=== PATIENT | female | born 1930 | race Caucasian/White ===

== ENCOUNTER 2018-10-15 15:30 | Inpatient (IN) ==
[2018-10-15] MEDS ORDERED: FUROSEMIDE 100 MG/10 ML VIAL IV STA (15:44)
[2018-10-15] MEDS ORDERED: ALBUTEROL 2.5 MG/3 ML NEB RESP TX STA (15:46)
[2018-10-15] MEDS ORDERED: cefTRIAXone 1,000 MG in SODIUM CHLORIDE 0.9% 100 ML IV STA (16:23)
[2018-10-15 17:24] LABS: Apearance,Urine CLEAR (Clear); Bacteria,Urine Occasional /HPF (Few); Bilirubin,Urine Negative (Negative); Blood, Urine Small mg/dL (Negative); Glucose,Urine (UA) Negative (Negative); Hyaline Casts,Urine 16 /LPF (0-3); Ketones,Urine Negative (Negative); Mucus,Urine Occasional /LPF (Occasional); Nitrite,Urine Negative (Negative); Protein,Urine Negative; RBC,Urine 9 /HPF (0-4); Squamous Epithelial Cell,Urine Occasional /HPF (0-10); Urine Color Straw (Yellow); Urine Specific Gravity 1.006 (1.001-1.035); Urine Urobilinogen < 2.0 EU/DL (0.2-1.0); WBC,Urine 2 /HPF (0-6)
[2018-10-15 17:37] LABS: Basophils # 0.1 10*3/uL (0.0-0.2); Basophils % 0.5 % (0.0-0.8); Eosinophils # 0.1 10*3/uL (0.0-0.87); Eosinophils % 0.4 % (0.00-10.9); Hematocrit 46.9 VOL% (35.7-47.0); Hemoglobin 14.7 GM/DL (12.0-16.0); Immature Granulocytes % 0.7 %; Immature Granulocytes Absolute 0.13 #; Lymphocytes # 2.2 10*3/uL (1.4-4.0); Lymphocytes % 11.9 % (21.3-54.2); Mean Corpuscular HGB Conc 31.3 GM/DL (32-36); Mean Corpuscular Hemoglobin 31 PG (27-34); Mean Corpuscular Volume 99.4 FL (87-102); Mean Platelet Volume 11.1 FL (9.6-12.0); Monocytes % 5.4 % (1.7-12.7); Neutrophils # 15.3 10*3/uL (1.4-7.4); Neutrophils % 81.1 % (38.7-73.9); Platelet Count 251 T/CUMM (130-400); Red Blood Count 4.72 MC/CUMM (3.8-5.5); Red Cell Distribution Width 13.3 % (9.3-17.3); White Blood Count 18.8 T/CUMM (4-12)
[2018-10-15 17:43] LABS: ABG Base Excess -0.2 MMOL/L (-2.5-2.5); ABG HCO3 24.2 MMOL/L (20-26); ABG Oxygen Saturation 94.9 % (95-100); ABG PCO2 68.1 MM HG (35-48); ABG PH 7.249 (7.35-7.45); ABG PO2 84.8 MM HG (80-95); Allen Test Positive; Pt O2 Delivery Device BIPAP
[2018-10-15] MEDS ORDERED: ONDANSETRON 4 MG/2 ML VIAL IV PRN (18:01)
[2018-10-15 18:05] LABS: Alanine Aminotransferase 32 U/L (13-56); Albumin 3.3 G/DL (3.4-5.0); Alkaline Phosphatase 75 U/L (45-117); Aspartate Amino Transferase 32 U/L (0-37); Bilirubin,Total < 0.39 MG/DL (0.2-1.0); Blood Urea Nitrogen 36 MG/DL (7-18); Calcium 8.7 MG/DL (8.5-10.1); Glucose 225 MG/DL (74-106); Osmolality,Calculated 293.4 MOS/KG (273-304); Potassium 4.8 MMOL/L (3.5-5.1); Sodium 140 MMOL/L (136-145); Total Protein 7.7 G/DL (6.4-8.3)
[2018-10-15] MEDS ORDERED: LEVOFLOXACIN INJ 500 MG in PREMIX 1 EACH IV ONE (19:30)
[2018-10-15] MEDS: CLINDAMYCIN INJ 600 MG in PREMIX 1 EACH IV SCH (20:35)
[2018-10-15] MEDS: MEROPENEM 1,000 MG in SODIUM CHLORIDE 0.9% 100 ML IV SCH (21:28)
[2018-10-15] MEDS: ALBUTEROL/IPRATROPIUM 3 ML NEB RESP TX SCH (21:30)
[2018-10-15] MEDS: HEPARIN 5,000 UNIT/1 ML VIAL SUBCUT SCH (21:32)
[2018-10-15] MEDS: cloNIDine 0.2 MG/24 HR PATCH TRANSDERM SCH (23:22)
[2018-10-16] MEDS: INSULIN REGULAR 100 UNIT/ML SUBCUT SCH ×5 (00:09→23:44)
[2018-10-16] MEDS: ALBUTEROL/IPRATROPIUM 3 ML NEB RESP TX SCH ×6 (01:58→19:26)
[2018-10-16 02:16] LABS: Basophils % 0.4 % (0.0-0.8); Hematocrit 38.2 VOL% (35.7-47.0); Hemoglobin 12.3 GM/DL (12.0-16.0); Immature Granulocytes % 0.4 %; Immature Granulocytes Absolute 0.05 #; Lymphocytes # 1.5 10*3/uL (1.4-4.0); Mean Corpuscular HGB Conc 32.2 GM/DL (32-36); Mean Corpuscular Hemoglobin 32 PG (27-34); Mean Corpuscular Volume 97.7 FL (87-102); Mean Platelet Volume 10.9 FL (9.6-12.0); Monocytes # 0.7 10*3/uL (0.11-0.8); Monocytes % 6.2 % (1.7-12.7); Platelet Count 193 T/CUMM (130-400); Red Blood Count 3.91 MC/CUMM (3.8-5.5); Red Cell Distribution Width 13.2 % (9.3-17.3); White Blood Count 11.3 T/CUMM (4-12)
[2018-10-16 02:28] LABS: Calcium 8.2 MG/DL (8.5-10.1); Osmolality,Calculated 293.3 MOS/KG (273-304); Potassium 3.9 MMOL/L (3.5-5.1)
[2018-10-16 02:36] LABS: Troponin I 0.057 NG/ML (0.00-0.045)
[2018-10-16 05:27] LABS: ABG HCO3 28.9 MMOL/L (20-26); ABG Oxygen Saturation 99.7 % (95-100); ABG PCO2 49.5 MM HG (35-48); ABG PH 7.403 (7.35-7.45); ABG TCO2 27.2 MMOL/L (23-27); Allen Test Positive; Pt O2 Delivery Device BIPAP
[2018-10-16] MEDS: CLINDAMYCIN INJ 600 MG in PREMIX 1 EACH IV SCH (05:37)
[2018-10-16] MEDS: HEPARIN 5,000 UNIT/1 ML VIAL SUBCUT SCH ×3 (05:37→20:44)
[2018-10-16] MEDS: MEROPENEM 1,000 MG in SODIUM CHLORIDE 0.9% 100 ML IV SCH ×2 (09:27→20:45)
[2018-10-16] MEDS: FUROSEMIDE 40 MG/4 ML VIAL IV SCH (09:28)
[2018-10-16] MEDS ORDERED: NITROGLYCERIN SL 0.4 MG TABLET SL PRN (13:21)
[2018-10-16] MEDS: ALLOPURINOL 100 MG TABLET PO SCH (14:13)
[2018-10-16] MEDS: cloNIDine 0.2 MG/24 HR PATCH TRANSDERM SCH (14:39)
[2018-10-16] MEDS: INSULIN NPH/REGULAR 70/30 100 UNIT/ML SUBCUT SCH ×2 (16:36→17:01)
[2018-10-16] MEDS: POTASSIUM CHLORIDE 10 MEQ TABLET PO SCH (18:48)
[2018-10-16] MEDS ORDERED: LEVOFLOXACIN INJ 250 MG in PREMIX 1 EACH IV SCH (20:00)
[2018-10-16] MEDS: GABAPENTIN 600 MG TABLET PO SCH (20:43)
[2018-10-16] MEDS: SIMVASTATIN 20 MG TABLET PO SCH (20:43)
[2018-10-16] MEDS: MAGNESIUM CHLORIDE 64 MG TABLET PO SCH (20:43)
[2018-10-16] MEDS ORDERED: CARVEDILOL 6.25 MG TABLET PO SCH (21:00)
[2018-10-16] MEDS: MORPHINE 4 MG/1 ML VIAL IV PRN (23:58)
[2018-10-17] MEDS: ALBUTEROL/IPRATROPIUM 3 ML NEB RESP TX SCH ×7 (00:19→23:00)
[2018-10-17 04:10] LABS: ABG Base Excess 8.4 MMOL/L (-2.5-2.5); ABG HCO3 32.9 MMOL/L (20-26); ABG Oxygen Saturation 98.6 % (95-100); ABG PCO2 44.9 MM HG (35-48); ABG PH 7.483 (7.35-7.45); ABG PO2 138.8 MM HG (80-95); ABG TCO2 34.3 MMOL/L (23-27); Allen Test Positive
[2018-10-17 04:36] LABS: Basophils % 0.5 % (0.0-0.8); Eosinophils # 0.1 10*3/uL (0.0-0.87); Eosinophils % 1.5 % (0.00-10.9); Hematocrit 38.4 VOL% (35.7-47.0); Hemoglobin 12.2 GM/DL (12.0-16.0); Immature Granulocytes % 0.4 %; Immature Granulocytes Absolute 0.03 #; Lymphocytes % 24.3 % (21.3-54.2); Mean Corpuscular HGB Conc 31.8 GM/DL (32-36); Mean Corpuscular Hemoglobin 31 PG (27-34); Mean Corpuscular Volume 98.2 FL (87-102); Mean Platelet Volume 11.5 FL (9.6-12.0); Monocytes # 0.8 10*3/uL (0.11-0.8); Monocytes % 9.4 % (1.7-12.7); Neutrophils # 5.3 10*3/uL (1.4-7.4); Neutrophils % 63.9 % (38.7-73.9); Platelet Count 177 T/CUMM (130-400); Red Blood Count 3.91 MC/CUMM (3.8-5.5); Red Cell Distribution Width 13.2 % (9.3-17.3); White Blood Count 8.3 T/CUMM (4-12)
[2018-10-17] MEDS: HEPARIN 5,000 UNIT/1 ML VIAL SUBCUT SCH ×3 (04:46→20:29)
[2018-10-17 05:17] LABS: Calcium 8.3 MG/DL (8.5-10.1); Osmolality,Calculated 291.1 MOS/KG (273-304); Potassium 3.7 MMOL/L (3.5-5.1)
[2018-10-17] MEDS: INSULIN REGULAR 100 UNIT/ML SUBCUT SCH (05:23)
[2018-10-17] MEDS: INSULIN NPH/REGULAR 70/30 100 UNIT/ML SUBCUT SCH ×2 (07:51→18:18)
[2018-10-17] MEDS: DILTIAZEM CD 180 MG CAPSULE PO SCH (08:53)
[2018-10-17] MEDS: POTASSIUM CHLORIDE 10 MEQ TABLET PO SCH ×2 (08:53→17:02)
[2018-10-17] MEDS: ALLOPURINOL 100 MG TABLET PO SCH (08:53)
[2018-10-17] MEDS: CARVEDILOL 12.5 MG TABLET PO SCH ×2 (08:54→20:30)
[2018-10-17] MEDS: CLOPIDOGREL 75 MG TABLET PO SCH (08:54)
[2018-10-17] MEDS: IRON (CARBONYL)/VIT C/B12/FA TABLET PO SCH (08:54)
[2018-10-17] MEDS: MAGNESIUM CHLORIDE 64 MG TABLET PO SCH ×2 (08:54→20:30)
[2018-10-17] MEDS: FUROSEMIDE 40 MG/4 ML VIAL IV SCH (08:54)
[2018-10-17] MEDS: ASPIRIN EC 81 MG TABLET PO SCH (08:54)
[2018-10-17] MEDS: MEROPENEM 1,000 MG in SODIUM CHLORIDE 0.9% 100 ML IV SCH ×2 (08:55→20:30)
[2018-10-17] MEDS: LISINOPRIL 5 MG TABLET PO SCH (18:55)
[2018-10-17] MEDS: ISOSORBIDE MONONITRATE 20 MG TABLET PO SCH (19:02)
[2018-10-17] MEDS: SIMVASTATIN 20 MG TABLET PO SCH (20:30)
[2018-10-17] MEDS: GABAPENTIN 600 MG TABLET PO SCH (20:30)
[2018-10-18] MEDS: ALBUTEROL/IPRATROPIUM 3 ML NEB RESP TX SCH ×6 (03:00→23:45)
[2018-10-18] MEDS: MORPHINE 4 MG/1 ML VIAL IV PRN (04:35)
[2018-10-18] MEDS: HEPARIN 5,000 UNIT/1 ML VIAL SUBCUT SCH ×3 (04:46→21:58)
[2018-10-18] MEDS: INSULIN NPH/REGULAR 70/30 100 UNIT/ML SUBCUT SCH ×2 (10:15→16:52)
[2018-10-18] MEDS: ASPIRIN EC 81 MG TABLET PO SCH (10:22)
[2018-10-18] MEDS: IRON (CARBONYL)/VIT C/B12/FA TABLET PO SCH (10:22)
[2018-10-18] MEDS: DILTIAZEM CD 180 MG CAPSULE PO SCH (10:22)
[2018-10-18] MEDS: CLOPIDOGREL 75 MG TABLET PO SCH (10:23)
[2018-10-18] MEDS: ISOSORBIDE MONONITRATE 20 MG TABLET PO SCH ×2 (10:23→21:52)
[2018-10-18] MEDS: ALLOPURINOL 100 MG TABLET PO SCH (10:24)
[2018-10-18] MEDS: MAGNESIUM CHLORIDE 64 MG TABLET PO SCH ×2 (10:24→21:53)
[2018-10-18] MEDS: CARVEDILOL 6.25 MG TABLET PO SCH ×2 (10:25→21:52)
[2018-10-18] MEDS: POTASSIUM CHLORIDE 10 MEQ TABLET PO SCH ×2 (10:25→16:52)
[2018-10-18] MEDS: LEVOFLOXACIN 250 MG TABLET PO SCH (10:25)
[2018-10-18] MEDS: LISINOPRIL 5 MG TABLET PO SCH (10:25)
[2018-10-18] MEDS: MEROPENEM 1,000 MG in SODIUM CHLORIDE 0.9% 100 ML IV SCH ×2 (10:25→21:49)
[2018-10-18] MEDS: FUROSEMIDE 40 MG/4 ML VIAL IV SCH (10:26)
[2018-10-18] MEDS ORDERED: MORPHINE 4 MG/1 ML VIAL IV PRN (13:15)
[2018-10-18] MEDS: GABAPENTIN 600 MG TABLET PO SCH (21:52)
[2018-10-18] MEDS: SIMVASTATIN 20 MG TABLET PO SCH (21:52)
[2018-10-19] MEDS: ALBUTEROL/IPRATROPIUM 3 ML NEB RESP TX SCH ×6 (04:36→23:36)
[2018-10-19 05:18] LABS: Basophils % 0.6 % (0.0-0.8); Eosinophils # 0.2 10*3/uL (0.0-0.87); Eosinophils % 2.7 % (0.00-10.9); Hematocrit 36.3 VOL% (35.7-47.0); Hemoglobin 11.7 GM/DL (12.0-16.0); Immature Granulocytes % 0.5 %; Immature Granulocytes Absolute 0.03 #; Lymphocytes # 2.1 10*3/uL (1.4-4.0); Lymphocytes % 31.4 % (21.3-54.2); Mean Corpuscular HGB Conc 32.2 GM/DL (32-36); Mean Corpuscular Hemoglobin 31 PG (27-34); Mean Corpuscular Volume 96.8 FL (87-102); Mean Platelet Volume 11.7 FL (9.6-12.0); Monocytes # 0.7 10*3/uL (0.11-0.8); Monocytes % 11.3 % (1.7-12.7); Neutrophils # 3.5 10*3/uL (1.4-7.4); Neutrophils % 53.5 % (38.7-73.9); Platelet Count 185 T/CUMM (130-400); Red Blood Count 3.75 MC/CUMM (3.8-5.5); Red Cell Distribution Width 13.1 % (9.3-17.3); White Blood Count 6.6 T/CUMM (4-12)
[2018-10-19] MEDS: HEPARIN 5,000 UNIT/1 ML VIAL SUBCUT SCH ×3 (05:35→20:40)
[2018-10-19 05:38] LABS: Calcium 8.8 MG/DL (8.5-10.1); Osmolality,Calculated 290.4 MOS/KG (273-304); Potassium 3.7 MMOL/L (3.5-5.1)
[2018-10-19] MEDS: IRON (CARBONYL)/VIT C/B12/FA TABLET PO SCH (10:48)
[2018-10-19] MEDS: LISINOPRIL 5 MG TABLET PO SCH (10:48)
[2018-10-19] MEDS: MAGNESIUM CHLORIDE 64 MG TABLET PO SCH ×2 (10:48→20:41)
[2018-10-19] MEDS: ASPIRIN EC 81 MG TABLET PO SCH (10:49)
[2018-10-19] MEDS: ALLOPURINOL 100 MG TABLET PO SCH (10:49)
[2018-10-19] MEDS: LEVOFLOXACIN 250 MG TABLET PO SCH (10:49)
[2018-10-19] MEDS: POTASSIUM CHLORIDE 10 MEQ TABLET PO SCH ×2 (10:49→18:07)
[2018-10-19] MEDS: FUROSEMIDE 40 MG TABLET PO SCH (10:49)
[2018-10-19] MEDS: DILTIAZEM CD 180 MG CAPSULE PO SCH (10:49)
[2018-10-19] MEDS: CLOPIDOGREL 75 MG TABLET PO SCH (10:49)
[2018-10-19] MEDS: CARVEDILOL 6.25 MG TABLET PO SCH ×2 (10:50→21:05)
[2018-10-19] MEDS: INSULIN NPH/REGULAR 70/30 100 UNIT/ML SUBCUT SCH ×2 (10:50→18:07)
[2018-10-19] MEDS: ISOSORBIDE MONONITRATE 20 MG TABLET PO SCH ×2 (10:52→20:38)
[2018-10-19] MEDS: MEROPENEM 1,000 MG in SODIUM CHLORIDE 0.9% 100 ML IV SCH ×2 (10:52→20:37)
[2018-10-19] MEDS: GABAPENTIN 600 MG TABLET PO SCH (20:40)
[2018-10-19] MEDS: SIMVASTATIN 20 MG TABLET PO SCH (21:05)
[2018-10-20] MEDS: ALBUTEROL/IPRATROPIUM 3 ML NEB RESP TX SCH ×3 (03:44→11:28)
[2018-10-20 04:55] LABS: Basophils # 0.1 10*3/uL (0.0-0.2); Basophils % 0.9 % (0.0-0.8); Eosinophils # 0.2 10*3/uL (0.0-0.87); Eosinophils % 2.9 % (0.00-10.9); Hematocrit 36.9 VOL% (35.7-47.0); Immature Granulocytes % 0.5 %; Immature Granulocytes Absolute 0.03 #; Lymphocytes % 31.5 % (21.3-54.2); Mean Corpuscular HGB Conc 32.5 GM/DL (32-36); Mean Corpuscular Hemoglobin 31 PG (27-34); Mean Corpuscular Volume 96.3 FL (87-102); Mean Platelet Volume 11.9 FL (9.6-12.0); Monocytes # 0.7 10*3/uL (0.11-0.8); Neutrophils # 3.4 10*3/uL (1.4-7.4); Neutrophils % 53.2 % (38.7-73.9); Platelet Count 180 T/CUMM (130-400); Red Blood Count 3.83 MC/CUMM (3.8-5.5); White Blood Count 6.5 T/CUMM (4-12)
[2018-10-20 05:15] LABS: Calcium 8.7 MG/DL (8.5-10.1); Osmolality,Calculated 291.5 MOS/KG (273-304); Potassium 3.8 MMOL/L (3.5-5.1)
[2018-10-20] MEDS: HEPARIN 5,000 UNIT/1 ML VIAL SUBCUT SCH ×2 (05:15→12:43)
[2018-10-20] MEDS: INSULIN NPH/REGULAR 70/30 100 UNIT/ML SUBCUT SCH (08:43)
[2018-10-20] MEDS: IRON (CARBONYL)/VIT C/B12/FA TABLET PO SCH (08:44)
[2018-10-20] MEDS: DILTIAZEM CD 180 MG CAPSULE PO SCH (08:44)
[2018-10-20] MEDS: LISINOPRIL 5 MG TABLET PO SCH (08:44)
[2018-10-20] MEDS: CLOPIDOGREL 75 MG TABLET PO SCH (08:44)
[2018-10-20] MEDS: ALLOPURINOL 100 MG TABLET PO SCH (08:45)
[2018-10-20] MEDS: MAGNESIUM CHLORIDE 64 MG TABLET PO SCH (08:45)
[2018-10-20] MEDS: ISOSORBIDE MONONITRATE 20 MG TABLET PO SCH (08:45)
[2018-10-20] MEDS: FUROSEMIDE 40 MG TABLET PO SCH (08:45)
[2018-10-20] MEDS: CARVEDILOL 6.25 MG TABLET PO SCH (08:45)
[2018-10-20] MEDS: ASPIRIN EC 81 MG TABLET PO SCH (08:45)
[2018-10-20] MEDS: POTASSIUM CHLORIDE 10 MEQ TABLET PO SCH (08:45)
[2018-10-20] MEDS: MEROPENEM 1,000 MG in SODIUM CHLORIDE 0.9% 100 ML IV SCH (08:46)
[2018-10-20] MEDS: LEVOFLOXACIN 250 MG TABLET PO SCH (12:43)
[2018-10-20 13:06] VITALS: BP 107/53
== END 2018-10-20 14:22 | disposition home health service (06) | DRG 291 ==
LOC: EDUNIT# → N.ED 15:30 → N.EDINP 18:01 → SUATTDRO 18:01 → N.CC 19:22 → N.4E 10-17 22:50
PROVIDERS: ADMIT Internal Medicine; ATTEND Hospitalist

== ENCOUNTER 2018-12-19 21:40 | Observation (INO) ==
[2018-12-19] MEDS ORDERED: ASPIRIN 325 MG TABLET PO STA (22:26)
[2018-12-19] MEDS ORDERED: ONDANSETRON 4 MG/2 ML VIAL IV STA (22:26)
[2018-12-19] MEDS ORDERED: NITROGLYCERIN 2% OINT 1 INCH/GM PACK TOP STA (22:26)
[2018-12-19] MEDS ORDERED: MORPHINE 4 MG/1 ML VIAL IV STA (22:26)
[2018-12-19 22:33] LABS: Basophils # 0.1 10*3/uL (0.0-0.2); Basophils % 0.7 % (0.0-0.8); Eosinophils # 0.1 10*3/uL (0.0-0.87); Eosinophils % 1.5 % (0.00-10.9); Hematocrit 39.5 VOL% (35.7-47.0); Hemoglobin 12.3 GM/DL (12.0-16.0); Immature Granulocytes % 0.4 %; Immature Granulocytes Absolute 0.04 #; Lymphocytes # 2.2 10*3/uL (1.4-4.0); Lymphocytes % 24.4 % (21.3-54.2); Mean Corpuscular HGB Conc 31.1 GM/DL (32-36); Mean Corpuscular Hemoglobin 30 PG (27-34); Mean Corpuscular Volume 96.8 FL (87-102); Mean Platelet Volume 11.2 FL (9.6-12.0); Monocytes # 0.7 10*3/uL (0.11-0.8); Monocytes % 7.8 % (1.7-12.7); Neutrophils # 5.9 10*3/uL (1.4-7.4); Neutrophils % 65.2 % (38.7-73.9); Platelet Count 200 T/CUMM (130-400); Red Blood Count 4.08 MC/CUMM (3.8-5.5); Red Cell Distribution Width 14.4 % (9.3-17.3); White Blood Count 9.1 T/CUMM (4-12)
[2018-12-19 22:37] LABS: INR 0.9; PT Patient Result 10.3 SECS
[2018-12-19 22:46] LABS: Alanine Aminotransferase 19 U/L (13-56); Albumin 3.2 G/DL (3.4-5.0); Alkaline Phosphatase 64 U/L (45-117); Aspartate Amino Transferase 13 U/L (0-37); Bilirubin,Total < 0.39 MG/DL (0.2-1.0); Blood Urea Nitrogen 40 MG/DL (7-18); Calcium 8.2 MG/DL (8.5-10.1); Glucose 192 MG/DL (74-106); Osmolality,Calculated 300.8 MOS/KG (273-304); Potassium 3.7 MMOL/L (3.5-5.1); Sodium 144 MMOL/L (136-145); Total Protein 7.1 G/DL (6.4-8.3)
[2018-12-20] MEDS ORDERED: DOCUSATE SODIUM 100 MG CAPSULE PO PRN (01:49)
[2018-12-20] MEDS ORDERED: NITROGLYCERIN SL 0.4 MG TABLET SL PRN (01:49)
[2018-12-20] MEDS ORDERED: MORPHINE 4 MG/1 ML VIAL IV PRN (01:55)
[2018-12-20] MEDS ORDERED: ONDANSETRON 4 MG/2 ML VIAL IV PRN (01:55)
[2018-12-20 05:06] LABS: Basophils # 0.1 10*3/uL (0.0-0.2); Basophils % 0.9 % (0.0-0.8); Eosinophils # 0.1 10*3/uL (0.0-0.87); Eosinophils % 1.6 % (0.00-10.9); Hematocrit 36.7 VOL% (35.7-47.0); Hemoglobin 11.7 GM/DL (12.0-16.0); Immature Granulocytes % 0.3 %; Immature Granulocytes Absolute 0.02 #; Lymphocytes # 2.6 10*3/uL (1.4-4.0); Lymphocytes % 33.5 % (21.3-54.2); Mean Corpuscular HGB Conc 31.9 GM/DL (32-36); Mean Corpuscular Hemoglobin 31 PG (27-34); Mean Corpuscular Volume 96.3 FL (87-102); Mean Platelet Volume 11.5 FL (9.6-12.0); Monocytes # 0.7 10*3/uL (0.11-0.8); Monocytes % 9.7 % (1.7-12.7); Neutrophils # 4.1 10*3/uL (1.4-7.4); Platelet Count 182 T/CUMM (130-400); Red Blood Count 3.81 MC/CUMM (3.8-5.5); Red Cell Distribution Width 14.5 % (9.3-17.3); White Blood Count 7.6 T/CUMM (4-12)
[2018-12-20 05:26] LABS: Calcium 8.3 MG/DL (8.5-10.1); Osmolality,Calculated 294.7 MOS/KG (273-304); Potassium 3.8 MMOL/L (3.5-5.1)
[2018-12-20] MEDS ORDERED: ISOSORBIDE MONONITRATE 20 MG TABLET PO SCH (09:00)
[2018-12-20] MEDS: INSULIN NPH/REGULAR 70/30 100 UNIT/ML SUBCUT SCH ×2 (09:03→16:51)
[2018-12-20] MEDS: ALLOPURINOL 100 MG TABLET PO SCH (10:51)
[2018-12-20] MEDS: MAGNESIUM CHLORIDE 64 MG TABLET PO SCH ×2 (10:51→21:26)
[2018-12-20] MEDS: LISINOPRIL 5 MG TABLET PO SCH (10:51)
[2018-12-20] MEDS: MULTIVITAMIN (BEROCCA) TABLET PO SCH (10:51)
[2018-12-20] MEDS: FUROSEMIDE 20 MG TABLET PO SCH (10:52)
[2018-12-20] MEDS: ASPIRIN EC 81 MG TABLET PO SCH (10:53)
[2018-12-20] MEDS: POTASSIUM CHLORIDE 10 MEQ TABLET PO SCH ×2 (10:53→16:50)
[2018-12-20] MEDS: CLOPIDOGREL 75 MG TABLET PO SCH (10:53)
[2018-12-20] MEDS: CARVEDILOL 12.5 MG TABLET PO SCH ×2 (10:53→16:50)
[2018-12-20] MEDS: ISOSORBIDE MONONITRATE 20 MG TABLET PO SCH ×2 (10:55→21:26)
[2018-12-20] MEDS: DILTIAZEM CD 180 MG CAPSULE PO SCH (10:55)
[2018-12-20] MEDS ORDERED: MAGNESIUM SULF RIDER 2 GM in PREMIX 1 EACH IV PRN (14:05)
[2018-12-20] MEDS ORDERED: POTASSIUM CHLORIDE RIDER 10 MEQ in PREMIX 1 EACH IV PRN (14:05)
[2018-12-20] MEDS: SODIUM CHLORIDE 0.9% 1,000 ML IV SCH (14:38)
[2018-12-20] MEDS: SIMVASTATIN 20 MG TABLET PO SCH (21:26)
[2018-12-20] MEDS: GABAPENTIN 600 MG TABLET PO SCH (21:26)
[2018-12-21] MEDS: SODIUM CHLORIDE 0.9% 1,000 ML IV SCH ×3 (03:32→16:12)
[2018-12-21 05:02] LABS: Basophils # 0.1 10*3/uL (0.0-0.2); Basophils % 0.9 % (0.0-0.8); Eosinophils # 0.2 10*3/uL (0.0-0.87); Eosinophils % 2.6 % (0.00-10.9); Hematocrit 35.4 VOL% (35.7-47.0); Hemoglobin 11.1 GM/DL (12.0-16.0); Immature Granulocytes % 0.3 %; Immature Granulocytes Absolute 0.02 #; Lymphocytes # 2.7 10*3/uL (1.4-4.0); Lymphocytes % 38.6 % (21.3-54.2); Mean Corpuscular HGB Conc 31.4 GM/DL (32-36); Mean Corpuscular Hemoglobin 30 PG (27-34); Mean Platelet Volume 11.5 FL (9.6-12.0); Monocytes # 0.6 10*3/uL (0.11-0.8); Monocytes % 8.3 % (1.7-12.7); Neutrophils # 3.4 10*3/uL (1.4-7.4); Neutrophils % 49.3 % (38.7-73.9); Platelet Count 171 T/CUMM (130-400); Red Blood Count 3.65 MC/CUMM (3.8-5.5); Red Cell Distribution Width 14.6 % (9.3-17.3); White Blood Count 6.9 T/CUMM (4-12)
[2018-12-21 05:19] LABS: Calcium 7.9 MG/DL (8.5-10.1); Osmolality,Calculated 295.7 MOS/KG (273-304); Potassium 3.8 MMOL/L (3.5-5.1)
[2018-12-21] MEDS ORDERED: DIAZEPAM 5 MG TABLET PO ONE (06:00)
[2018-12-21] MEDS ORDERED: diphenhydrAMINE CAP 25 MG CAPSULE PO ONE (06:00)
[2018-12-21] MEDS: INSULIN NPH/REGULAR 70/30 100 UNIT/ML SUBCUT SCH ×2 (07:18→18:28)
[2018-12-21] MEDS: LISINOPRIL 5 MG TABLET PO SCH (09:20)
[2018-12-21] MEDS: ASPIRIN EC 81 MG TABLET PO SCH (09:21)
[2018-12-21] MEDS: DILTIAZEM CD 180 MG CAPSULE PO SCH (09:21)
[2018-12-21] MEDS: ISOSORBIDE MONONITRATE 20 MG TABLET PO SCH ×2 (09:21→21:34)
[2018-12-21] MEDS: CLOPIDOGREL 75 MG TABLET PO SCH (09:24)
[2018-12-21] MEDS: CARVEDILOL 12.5 MG TABLET PO SCH ×2 (09:24→18:28)
[2018-12-21] MEDS: POTASSIUM CHLORIDE 10 MEQ TABLET PO SCH ×2 (09:29→18:28)
[2018-12-21] MEDS ORDERED: LIDOCAINE 1% 20 ML VIAL ONE (09:56)
[2018-12-21] MEDS ORDERED: HEPARIN/NACL 0.9% 2 UNITS/ML 1,000 ML IV ONE (09:56)
[2018-12-21] MEDS ORDERED: MIDAZOLAM 2 MG/2 ML VIAL ONE (10:54)
[2018-12-21] MEDS ORDERED: HYDROmorphone 2 MG/1 ML VIAL ONE (10:54)
[2018-12-21] MEDS: FUROSEMIDE 20 MG TABLET PO SCH (15:34)
[2018-12-21] MEDS: ALLOPURINOL 100 MG TABLET PO SCH (15:34)
[2018-12-21] MEDS: MAGNESIUM CHLORIDE 64 MG TABLET PO SCH ×2 (15:34→21:34)
[2018-12-21] MEDS: MULTIVITAMIN (BEROCCA) TABLET PO SCH (15:34)
[2018-12-21] MEDS: ACETAMINOPHEN 325 MG TABLET PO PRN ×2 (18:46→23:23)
[2018-12-21] MEDS: GABAPENTIN 600 MG TABLET PO SCH (21:34)
[2018-12-21] MEDS: SIMVASTATIN 20 MG TABLET PO SCH (21:34)
[2018-12-22 04:55] LABS: Calcium 8.3 MG/DL (8.5-10.1); Potassium 3.7 MMOL/L (3.5-5.1)
[2018-12-22] MEDS: SODIUM CHLORIDE 0.9% 1,000 ML IV SCH ×2 (06:12→07:37)
[2018-12-22] MEDS ORDERED: FUROSEMIDE 40 MG/4 ML VIAL IV ONE (07:40)
[2018-12-22] MEDS: ISOSORBIDE MONONITRATE 20 MG TABLET PO SCH (09:31)
[2018-12-22] MEDS: MULTIVITAMIN (BEROCCA) TABLET PO SCH (09:31)
[2018-12-22] MEDS: LISINOPRIL 5 MG TABLET PO SCH (09:31)
[2018-12-22] MEDS: CLOPIDOGREL 75 MG TABLET PO SCH (09:31)
[2018-12-22] MEDS: ASPIRIN EC 81 MG TABLET PO SCH (09:31)
[2018-12-22] MEDS: DILTIAZEM CD 180 MG CAPSULE PO SCH (09:31)
[2018-12-22] MEDS: MAGNESIUM CHLORIDE 64 MG TABLET PO SCH (09:31)
[2018-12-22] MEDS: FUROSEMIDE 20 MG TABLET PO SCH (09:31)
[2018-12-22] MEDS: INSULIN NPH/REGULAR 70/30 100 UNIT/ML SUBCUT SCH (09:32)
[2018-12-22] MEDS: ALLOPURINOL 100 MG TABLET PO SCH (09:32)
[2018-12-22] MEDS: CARVEDILOL 12.5 MG TABLET PO SCH (09:32)
[2018-12-22] MEDS: POTASSIUM CHLORIDE 10 MEQ TABLET PO SCH (09:32)
[2018-12-22 12:43] VITALS: BP 150/69
[2018-12-22] MEDS ORDERED: MAGNESIUM CITRATE 300 ML BOTTLE PO ONE (14:23)
== END 2018-12-22 15:03 | disposition home health service (06) ==
LOC: EDUNIT# → N.EDINP 21:40 → N.ED 21:40 → N.EDINP 12-20 02:30 → N.TELES 12-20 02:36
PROVIDERS: ADMIT Internal Medicine; ATTEND Internal Medicine

== ENCOUNTER 2019-02-09 20:09 | Inpatient (IN) ==
[2019-02-09 22:42] LABS: Basophils # 0.1 10*3/uL (0.0-0.2); Basophils % 0.7 % (0.0-0.8); Eosinophils # 0.1 10*3/uL (0.0-0.87); Eosinophils % 1.1 % (0.00-10.9); Hematocrit 40.9 VOL% (35.7-47.0); Hemoglobin 13.4 GM/DL (12.0-16.0); Immature Granulocytes % 0.5 %; Immature Granulocytes Absolute 0.05 #; Lymphocytes # 2.2 10*3/uL (1.4-4.0); Lymphocytes % 22.9 % (21.3-54.2); Mean Corpuscular HGB Conc 32.8 GM/DL (32-36); Mean Platelet Volume 11.2 FL (9.6-12.0); Monocytes % 7.1 % (1.7-12.7); Neutrophils % 67.7 % (38.7-73.9); Platelet Count 304 T/CUMM (130-400); Red Blood Count 4.26 MC/CUMM (3.8-5.5); Red Cell Distribution Width 14.2 % (9.3-17.3); White Blood Count 9.6 T/CUMM (4-12)
[2019-02-09 22:49] LABS: Calcium 9.3 MG/DL (8.5-10.1); Osmolality,Calculated 287.4 MOS/KG (273-304)
[2019-02-09] MEDS ORDERED: METOPROLOL TARTRATE 5 MG/5 ML VIAL IV STA (23:20)
[2019-02-09] MEDS ORDERED: ASPIRIN 325 MG TABLET PO STA (23:21)
[2019-02-09 23:35] LABS: Apearance,Urine CLEAR (Clear); Bilirubin,Urine Negative (Negative); Blood, Urine Moderate mg/dL (Negative); Glucose,Urine (UA) Negative (Negative); Hyaline Casts,Urine 7 /LPF (0-3); Ketones,Urine 5 mg/dL (Negative); Mucus,Urine Occasional /LPF (Occasional); Nitrite,Urine Negative (Negative); Protein,Urine Negative; RBC,Urine 9 /HPF (0-4); Squamous Epithelial Cell,Urine Occasional /HPF (0-10); Urine Color Yellow (Yellow); Urine Specific Gravity 1.011 (1.001-1.035); Urine Urobilinogen < 2.0 EU/DL (0.2-1.0); WBC,Urine 13 /HPF (0-6)
[2019-02-09] MEDS ORDERED: CIPROFLOXACIN INJ 400 MG in PREMIX 1 EACH IV STA (23:37)
[2019-02-09] MEDS ORDERED: FUROSEMIDE 40 MG/4 ML VIAL IV STA (23:37)
[2019-02-10] MEDS ORDERED: MORPHINE 4 MG/1 ML VIAL IV PRN (01:08)
[2019-02-10] MEDS ORDERED: NICOTINE 21 MG/24 HR PATCH TRANSDERM PRN (01:08)
[2019-02-10] MEDS ORDERED: ACETAMINOPHEN 325 MG TABLET PO PRN (01:08)
[2019-02-10] MEDS ORDERED: guaiFENesin/DM ER 600-30 MG TABLET PO PRN (01:08)
[2019-02-10] MEDS ORDERED: diphenhydrAMINE CAP 25 MG CAPSULE PO PRN (01:08)
[2019-02-10] MEDS ORDERED: ONDANSETRON 4 MG/2 ML VIAL IV PRN (01:08)
[2019-02-10] MEDS ORDERED: GLUCAGON 1 MG VIAL IM PRN (01:28)
[2019-02-10] MEDS ORDERED: DEXTROSE 50% 25 GM/50 ML SYRINGE IV PRN (01:28)
[2019-02-10 01:57] LABS: Risk Ratio 3.42; VLDL CHOLESTEROL 15.6 MG/DL
[2019-02-10] MEDS: ISOSORBIDE MONONITRATE 20 MG TABLET PO SCH ×2 (04:53→21:27)
[2019-02-10] MEDS: MAGNESIUM CHLORIDE 64 MG TABLET PO SCH ×3 (04:53→21:26)
[2019-02-10] MEDS: CARVEDILOL 12.5 MG TABLET PO SCH ×2 (04:53→21:26)
[2019-02-10 05:28] LABS: Basophils # 0.1 10*3/uL (0.0-0.2); Basophils % 0.8 % (0.0-0.8); Eosinophils # 0.1 10*3/uL (0.0-0.87); Hematocrit 39.3 VOL% (35.7-47.0); Hemoglobin 12.5 GM/DL (12.0-16.0); Immature Granulocytes % 0.3 %; Immature Granulocytes Absolute 0.03 #; Lymphocytes % 21.8 % (21.3-54.2); Mean Corpuscular HGB Conc 31.8 GM/DL (32-36); Mean Corpuscular Volume 94.9 FL (87-102); Mean Platelet Volume 11.1 FL (9.6-12.0); Monocytes % 8.5 % (1.7-12.7); Neutrophils % 67.6 % (38.7-73.9); Platelet Count 283 T/CUMM (130-400); Red Blood Count 4.14 MC/CUMM (3.8-5.5); Red Cell Distribution Width 14.1 % (9.3-17.3)
[2019-02-10 06:02] LABS: Albumin 2.8 G/DL (3.4-5.0); Bilirubin,Total 0.9 MG/DL (0.2-1.0); Calcium 9.3 MG/DL (8.5-10.1); Osmolality,Calculated 287.3 MOS/KG (273-304); Total Protein 7.3 G/DL (6.4-8.3)
[2019-02-10] MEDS: POTASSIUM CHLORIDE 20 MEQ TABLET PO PRN ×3 (09:00→13:22)
[2019-02-10] MEDS: INSULIN REGULAR 100 UNIT/ML SUBCUT SCH ×4 (09:35→21:00)
[2019-02-10] MEDS: DILTIAZEM CD 180 MG CAPSULE PO SCH (09:36)
[2019-02-10] MEDS: CLOPIDOGREL 75 MG TABLET PO SCH (09:36)
[2019-02-10] MEDS: PANTOPRAZOLE 40 MG TABLET PO SCH (09:36)
[2019-02-10] MEDS: ALLOPURINOL 100 MG TABLET PO SCH (09:37)
[2019-02-10] MEDS: ASPIRIN EC 81 MG TABLET PO SCH (09:37)
[2019-02-10] MEDS: LISINOPRIL 5 MG TABLET PO SCH (09:37)
[2019-02-10] MEDS: FUROSEMIDE 40 MG/4 ML VIAL IV SCH ×2 (09:38→16:11)
[2019-02-10] MEDS: ALBUTEROL/IPRATROPIUM 3 ML NEB RESP TX SCH ×2 (12:41→20:07)
[2019-02-10] MEDS: POTASSIUM CHLORIDE 20 MEQ TABLET PO SCH (13:25)
[2019-02-10] MEDS: CIPROFLOXACIN INJ 400 MG in PREMIX 1 EACH IV SCH (13:26)
[2019-02-10] MEDS: GABAPENTIN 600 MG TABLET PO SCH (21:26)
[2019-02-10] MEDS: SIMVASTATIN 20 MG TABLET PO SCH (21:27)
[2019-02-11] MEDS: CIPROFLOXACIN INJ 400 MG in PREMIX 1 EACH IV SCH ×2 (01:00→13:11)
[2019-02-11] MEDS: ALBUTEROL/IPRATROPIUM 3 ML NEB RESP TX SCH ×4 (01:46→20:05)
[2019-02-11 04:35] LABS: Basophils # 0.1 10*3/uL (0.0-0.2); Basophils % 0.7 % (0.0-0.8); Eosinophils # 0.1 10*3/uL (0.0-0.87); Eosinophils % 1.3 % (0.00-10.9); Hematocrit 38.1 VOL% (35.7-47.0); Hemoglobin 12.3 GM/DL (12.0-16.0); Immature Granulocytes % 0.4 %; Immature Granulocytes Absolute 0.03 #; Lymphocytes # 1.9 10*3/uL (1.4-4.0); Lymphocytes % 21.6 % (21.3-54.2); Mean Corpuscular HGB Conc 32.3 GM/DL (32-36); Mean Corpuscular Volume 93.8 FL (87-102); Mean Platelet Volume 11.3 FL (9.6-12.0); Monocytes % 9.6 % (1.7-12.7); Neutrophils % 66.4 % (38.7-73.9); Platelet Count 272 T/CUMM (130-400); Red Blood Count 4.06 MC/CUMM (3.8-5.5); White Blood Count 8.6 T/CUMM (4-12)
[2019-02-11 04:47] LABS: Osmolality,Calculated 286.4 MOS/KG (273-304)
[2019-02-11] MEDS: MAGNESIUM CHLORIDE 64 MG TABLET PO SCH ×2 (09:19→21:09)
[2019-02-11] MEDS: INSULIN REGULAR 100 UNIT/ML SUBCUT SCH ×4 (09:19→21:09)
[2019-02-11] MEDS: CLOPIDOGREL 75 MG TABLET PO SCH (09:19)
[2019-02-11] MEDS: ISOSORBIDE MONONITRATE 20 MG TABLET PO SCH ×2 (09:19→21:03)
[2019-02-11] MEDS: DILTIAZEM CD 180 MG CAPSULE PO SCH (09:20)
[2019-02-11] MEDS: POTASSIUM CHLORIDE 20 MEQ TABLET PO SCH (09:20)
[2019-02-11] MEDS: PANTOPRAZOLE 40 MG TABLET PO SCH (09:20)
[2019-02-11] MEDS: CARVEDILOL 12.5 MG TABLET PO SCH ×2 (09:20→21:03)
[2019-02-11] MEDS: ASPIRIN EC 81 MG TABLET PO SCH (09:20)
[2019-02-11] MEDS: LISINOPRIL 5 MG TABLET PO SCH (09:20)
[2019-02-11] MEDS: ALLOPURINOL 100 MG TABLET PO SCH (09:20)
[2019-02-11] MEDS: FUROSEMIDE 40 MG/4 ML VIAL IV SCH ×2 (09:21→16:02)
[2019-02-11] MEDS: GABAPENTIN 600 MG TABLET PO SCH (21:02)
[2019-02-11] MEDS: SIMVASTATIN 20 MG TABLET PO SCH (21:03)
[2019-02-12] MEDS: ALBUTEROL/IPRATROPIUM 3 ML NEB RESP TX SCH ×4 (01:06→19:36)
[2019-02-12] MEDS: CIPROFLOXACIN INJ 400 MG in PREMIX 1 EACH IV SCH ×2 (01:08→13:09)
[2019-02-12] MEDS: INSULIN REGULAR 100 UNIT/ML SUBCUT SCH ×4 (09:21→20:14)
[2019-02-12] MEDS: ISOSORBIDE MONONITRATE 20 MG TABLET PO SCH ×2 (09:22→20:41)
[2019-02-12] MEDS: POTASSIUM CHLORIDE 20 MEQ TABLET PO SCH (09:22)
[2019-02-12] MEDS: DILTIAZEM CD 180 MG CAPSULE PO SCH (09:23)
[2019-02-12] MEDS: CLOPIDOGREL 75 MG TABLET PO SCH (09:24)
[2019-02-12] MEDS: ASPIRIN EC 81 MG TABLET PO SCH (09:25)
[2019-02-12] MEDS: PANTOPRAZOLE 40 MG TABLET PO SCH (09:25)
[2019-02-12] MEDS: LISINOPRIL 5 MG TABLET PO SCH (09:25)
[2019-02-12] MEDS: CARVEDILOL 12.5 MG TABLET PO SCH ×2 (09:25→20:41)
[2019-02-12] MEDS: MAGNESIUM CHLORIDE 64 MG TABLET PO SCH ×2 (09:25→20:41)
[2019-02-12] MEDS: FUROSEMIDE 40 MG/4 ML VIAL IV SCH (09:29)
[2019-02-12] MEDS: ALLOPURINOL 100 MG TABLET PO SCH (09:42)
[2019-02-12] MEDS ORDERED: FUROSEMIDE 40 MG TABLET PO SCH (16:00)
[2019-02-12] MEDS: SIMVASTATIN 20 MG TABLET PO SCH (20:41)
[2019-02-12] MEDS: GABAPENTIN 600 MG TABLET PO SCH (20:41)
[2019-02-13] MEDS: ALBUTEROL/IPRATROPIUM 3 ML NEB RESP TX SCH ×4 (00:27→19:53)
[2019-02-13] MEDS: CIPROFLOXACIN INJ 400 MG in PREMIX 1 EACH IV SCH (01:57)
[2019-02-13 04:51] LABS: Calcium 8.5 MG/DL (8.5-10.1); Osmolality,Calculated 288.1 MOS/KG (273-304)
[2019-02-13] MEDS ORDERED: SODIUM CHLORIDE 0.9% 1,000 ML IV SCH (07:30)
[2019-02-13] MEDS: ASPIRIN EC 81 MG TABLET PO SCH (08:59)
[2019-02-13] MEDS: POTASSIUM CHLORIDE 20 MEQ TABLET PO SCH (08:59)
[2019-02-13] MEDS: CLOPIDOGREL 75 MG TABLET PO SCH (08:59)
[2019-02-13] MEDS: MAGNESIUM CHLORIDE 64 MG TABLET PO SCH ×2 (08:59→20:18)
[2019-02-13] MEDS: PANTOPRAZOLE 40 MG TABLET PO SCH (08:59)
[2019-02-13] MEDS: ALLOPURINOL 100 MG TABLET PO SCH (08:59)
[2019-02-13] MEDS: INSULIN REGULAR 100 UNIT/ML SUBCUT SCH ×4 (09:00→20:17)
[2019-02-13] MEDS: CARVEDILOL 12.5 MG TABLET PO SCH ×2 (09:05→20:12)
[2019-02-13] MEDS: DILTIAZEM CD 180 MG CAPSULE PO SCH (09:05)
[2019-02-13] MEDS: ISOSORBIDE MONONITRATE 20 MG TABLET PO SCH ×2 (09:05→20:12)
[2019-02-13] MEDS: SIMVASTATIN 20 MG TABLET PO SCH (20:18)
[2019-02-13] MEDS: GABAPENTIN 600 MG TABLET PO SCH (20:18)
[2019-02-14] MEDS: ALBUTEROL/IPRATROPIUM 3 ML NEB RESP TX SCH ×2 (00:31→07:16)
[2019-02-14 06:06] LABS: Calcium 8.5 MG/DL (8.5-10.1); Osmolality,Calculated 294.3 MOS/KG (273-304)
[2019-02-14] MEDS ORDERED: FUROSEMIDE 40 MG TABLET PO SCH (09:00)
[2019-02-14] MEDS: ISOSORBIDE MONONITRATE 20 MG TABLET PO SCH (09:23)
[2019-02-14] MEDS: ALLOPURINOL 100 MG TABLET PO SCH (09:24)
[2019-02-14] MEDS: MAGNESIUM CHLORIDE 64 MG TABLET PO SCH (09:24)
[2019-02-14] MEDS: ASPIRIN EC 81 MG TABLET PO SCH (09:25)
[2019-02-14] MEDS: DILTIAZEM CD 180 MG CAPSULE PO SCH (09:25)
[2019-02-14] MEDS: POTASSIUM CHLORIDE 20 MEQ TABLET PO SCH (09:25)
[2019-02-14] MEDS: INSULIN REGULAR 100 UNIT/ML SUBCUT SCH ×2 (09:26→12:35)
[2019-02-14] MEDS: CLOPIDOGREL 75 MG TABLET PO SCH (09:26)
[2019-02-14] MEDS: PANTOPRAZOLE 40 MG TABLET PO SCH (09:26)
[2019-02-14] MEDS: CARVEDILOL 12.5 MG TABLET PO SCH (09:26)
[2019-02-14] MEDS ORDERED: PHENAZOPYRIDINE 95 MG TABLET PO SCH (12:00)
[2019-02-14 12:30] VITALS: BP 146/80
== END 2019-02-14 13:49 | disposition home health service (06) | DRG 292 ==
LOC: EDBD → EDUNIT# → N.ED 20:09 → N.EDINP 02-10 01:03 → SUATTDRO 02-10 01:03 → N.TELEN 02-10 02:39
PROVIDERS: ADMIT Hospitalist; ATTEND Internal Medicine

== ENCOUNTER 2019-09-04 05:00 | Inpatient (IN) ==
[2019-09-04] MEDS ORDERED: FUROSEMIDE 40 MG/4 ML VIAL IV STA (06:17)
[2019-09-04 06:26] LABS: Basophils # 0.1 10*3/uL (0.0-0.2); Eosinophils # 0.1 10*3/uL (0.0-0.87); Eosinophils % 1.4 % (0.00-10.9); Hematocrit 41.9 VOL% (35.7-47.0); Hemoglobin 13.2 GM/DL (12.0-16.0); Immature Granulocytes % 0.5 %; Immature Granulocytes Absolute 0.04 #; Lymphocytes % 24.3 % (21.3-54.2); Mean Corpuscular HGB Conc 31.5 GM/DL (32-36); Mean Corpuscular Volume 98.8 FL (87-102); Mean Platelet Volume 11.3 FL (9.6-12.0); Monocytes % 7.3 % (1.7-12.7); Neutrophils % 65.5 % (38.7-73.9); Platelet Count 207 T/CUMM (130-400); Red Blood Count 4.24 MC/CUMM (3.8-5.5); White Blood Count 8.3 T/CUMM (4-12)
[2019-09-04 07:17] LABS: Amorphous Crystals,Urine Occasional /HPF (Few); Apearance,Urine CLEAR (Clear); Bacteria,Urine Occasional /HPF (Few); Bilirubin,Urine Negative (Negative); Blood, Urine Moderate mg/dL (Negative); Glucose,Urine (UA) Negative (Negative); Ketones,Urine Negative (Negative); Mucus,Urine Occasional /LPF (Occasional); Nitrite,Urine Negative (Negative); Protein,Urine Negative; RBC,Urine 5 /HPF (0-4); Squamous Epithelial Cell,Urine Occasional /HPF (0-10); Urine Color Yellow (Yellow); Urine Specific Gravity 1.011 (1.001-1.035); Urine Urobilinogen < 2.0 EU/DL (0.2-1.0); WBC,Urine 9 /HPF (0-6)
[2019-09-04] MEDS ORDERED: GENTAMICIN INJ 120 MG in SODIUM CHLORIDE 0.9% 100 ML IV STA (07:47)
[2019-09-04] MEDS ORDERED: GENTAMICIN 80 MG/2 ML VIAL ONE ×2 (07:51→07:52)
[2019-09-04] MEDS ORDERED: GENTAMICIN INJ 120 MG in PREMIX 1 EACH IV STA (07:52)
[2019-09-04 08:13] LABS: Albumin 2.9 G/DL (3.4-5.0); Bilirubin,Total 0.4 MG/DL (0.2-1.0); Calcium 8.2 MG/DL (8.5-10.1); Total Protein 6.6 G/DL (6.4-8.3)
[2019-09-04] MEDS ORDERED: ONDANSETRON 4 MG/2 ML VIAL IV PRN (08:26)
[2019-09-04] MEDS ORDERED: DOCUSATE SODIUM 100 MG CAPSULE PO PRN ×2 (08:26→08:29)
[2019-09-04] MEDS ORDERED: MORPHINE 4 MG/1 ML VIAL IV PRN (08:26)
[2019-09-04] MEDS ORDERED: NITROGLYCERIN SL 0.4 MG TABLET SL PRN (08:29)
[2019-09-04] MEDS ORDERED: PHENAZOPYRIDINE 95 MG TABLET PO PRN (08:29)
[2019-09-04] MEDS ORDERED: GLUCAGON 1 MG VIAL IM PRN (08:30)
[2019-09-04] MEDS ORDERED: DEXTROSE 50% 25 GM/50 ML VIAL IV PRN (08:30)
[2019-09-04 10:04] LABS: Risk Ratio 3.2; VLDL CHOLESTEROL 19.8 MG/DL
[2019-09-04] MEDS: MAGNESIUM CHLORIDE 64 MG TABLET PO SCH ×2 (10:18→21:14)
[2019-09-04] MEDS: FUROSEMIDE 40 MG/4 ML VIAL IV SCH (10:18)
[2019-09-04] MEDS: ISOSORBIDE MONONITRATE 20 MG TABLET PO SCH ×2 (10:21→21:13)
[2019-09-04] MEDS: CLOPIDOGREL 75 MG TABLET PO SCH (10:21)
[2019-09-04] MEDS: carvediloL 6.25 MG TABLET PO SCH ×2 (10:22→21:14)
[2019-09-04] MEDS: PANTOPRAZOLE 40 MG TABLET PO SCH (10:22)
[2019-09-04] MEDS: MULTIVITAMIN (BEROCCA) TABLET PO SCH (10:22)
[2019-09-04] MEDS: ASPIRIN EC 81 MG TABLET PO SCH (10:22)
[2019-09-04] MEDS: DILTIAZEM CD 180 MG CAPSULE PO SCH (10:22)
[2019-09-04] MEDS: ENOXAPARIN 30 MG/0.3 ML SYRINGE SUBCUT SCH (10:23)
[2019-09-04] MEDS: INSULIN LISPRO 100 UNIT/ML SUBCUT SCH ×3 (13:31→21:13)
[2019-09-04] MEDS: ALBUTEROL/IPRATROPIUM 3 ML NEB RESP TX PRN (13:32)
[2019-09-04] MEDS: POTASSIUM CHLORIDE 10 MEQ TABLET PO SCH (16:26)
[2019-09-04] MEDS: INSULIN NPH/REGULAR 70/30 100 UNIT/ML SUBCUT SCH (16:27)
[2019-09-04] MEDS: ACETAMINOPHEN 325 MG TABLET PO PRN ×2 (17:22→23:02)
[2019-09-04] MEDS: GABAPENTIN 600 MG TABLET PO SCH (21:14)
[2019-09-04] MEDS: SIMVASTATIN 20 MG TABLET PO SCH (21:14)
[2019-09-05] MEDS ORDERED: BENZONATATE 100 MG CAPSULE PO PRN (05:17)
[2019-09-05 06:00] LABS: Calcium 8.5 MG/DL (8.5-10.1); Osmolality,Calculated 285.1 MOS/KG (273-304)
[2019-09-05] MEDS ORDERED: POTASSIUM CHLORIDE 20 MEQ TABLET PO PRN (07:57)
[2019-09-05] MEDS: FUROSEMIDE 40 MG/4 ML VIAL IV SCH (09:05)
[2019-09-05] MEDS: INSULIN LISPRO 100 UNIT/ML SUBCUT SCH ×4 (09:05→23:08)
[2019-09-05] MEDS: INSULIN NPH/REGULAR 70/30 100 UNIT/ML SUBCUT SCH ×2 (09:05→16:27)
[2019-09-05] MEDS: ENOXAPARIN 30 MG/0.3 ML SYRINGE SUBCUT SCH (09:05)
[2019-09-05] MEDS: DILTIAZEM CD 180 MG CAPSULE PO SCH (09:06)
[2019-09-05] MEDS: POTASSIUM CHLORIDE 10 MEQ TABLET PO SCH ×2 (09:06→17:35)
[2019-09-05] MEDS: ASPIRIN EC 81 MG TABLET PO SCH (09:06)
[2019-09-05] MEDS: MULTIVITAMIN (BEROCCA) TABLET PO SCH (09:06)
[2019-09-05] MEDS: CLOPIDOGREL 75 MG TABLET PO SCH (09:06)
[2019-09-05] MEDS: MAGNESIUM CHLORIDE 64 MG TABLET PO SCH ×2 (09:06→23:07)
[2019-09-05] MEDS: ISOSORBIDE MONONITRATE 20 MG TABLET PO SCH ×2 (09:06→23:07)
[2019-09-05] MEDS: PANTOPRAZOLE 40 MG TABLET PO SCH (09:06)
[2019-09-05] MEDS: carvediloL 6.25 MG TABLET PO SCH ×2 (09:06→23:07)
[2019-09-05] MEDS ORDERED: POTASSIUM CHLORIDE 20 MEQ TABLET PO ONE (10:35)
[2019-09-05] MEDS ORDERED: DEXTROSE 10% 250 ML IV ONE (16:28)
[2019-09-05] MEDS ORDERED: DEXTROSE 10% 250 ML BAG IV PRN (16:35)
[2019-09-05] MEDS: ALBUTEROL/IPRATROPIUM 3 ML NEB RESP TX PRN (17:25)
[2019-09-05] MEDS: GABAPENTIN 600 MG TABLET PO SCH (23:07)
[2019-09-05] MEDS: SIMVASTATIN 20 MG TABLET PO SCH (23:07)
[2019-09-06] MEDS: INSULIN LISPRO 100 UNIT/ML SUBCUT SCH ×2 (07:56→12:44)
[2019-09-06 08:30] LABS: Basophils # 0.1 10*3/uL (0.0-0.2); Basophils % 0.9 % (0.0-0.8); Eosinophils # 0.1 10*3/uL (0.0-0.87); Eosinophils % 1.5 % (0.00-10.9); Hematocrit 42.7 VOL% (35.7-47.0); Hemoglobin 13.5 GM/DL (12.0-16.0); Immature Granulocytes % 0.4 %; Immature Granulocytes Absolute 0.03 #; Lymphocytes # 2.2 10*3/uL (1.4-4.0); Mean Corpuscular HGB Conc 31.6 GM/DL (32-36); Mean Corpuscular Volume 97.3 FL (87-102); Mean Platelet Volume 10.9 FL (9.6-12.0); Monocytes % 7.8 % (1.7-12.7); Neutrophils % 61.4 % (38.7-73.9); Platelet Count 201 T/CUMM (130-400); Red Blood Count 4.39 MC/CUMM (3.8-5.5); Red Cell Distribution Width 13.7 % (9.3-17.3); White Blood Count 7.9 T/CUMM (4-12)
[2019-09-06 08:44] LABS: Calcium 8.9 MG/DL (8.5-10.1); Osmolality,Calculated 282.5 MOS/KG (273-304)
[2019-09-06] MEDS: POTASSIUM CHLORIDE 10 MEQ TABLET PO SCH (09:43)
[2019-09-06] MEDS: MULTIVITAMIN (BEROCCA) TABLET PO SCH (09:43)
[2019-09-06] MEDS: DILTIAZEM CD 180 MG CAPSULE PO SCH (09:43)
[2019-09-06] MEDS: ASPIRIN EC 81 MG TABLET PO SCH (09:43)
[2019-09-06] MEDS: ISOSORBIDE MONONITRATE 20 MG TABLET PO SCH (09:43)
[2019-09-06] MEDS: MAGNESIUM CHLORIDE 64 MG TABLET PO SCH (09:44)
[2019-09-06] MEDS: PANTOPRAZOLE 40 MG TABLET PO SCH (09:44)
[2019-09-06] MEDS: carvediloL 6.25 MG TABLET PO SCH (09:44)
[2019-09-06] MEDS: CLOPIDOGREL 75 MG TABLET PO SCH (09:44)
[2019-09-06] MEDS: ENOXAPARIN 30 MG/0.3 ML SYRINGE SUBCUT SCH (09:45)
[2019-09-06] MEDS: INSULIN NPH/REGULAR 70/30 100 UNIT/ML SUBCUT SCH (09:45)
[2019-09-06] MEDS: ALBUTEROL/IPRATROPIUM 3 ML NEB RESP TX PRN (10:50)
[2019-09-06 12:13] VITALS: BP 121/77
[2019-09-06] MEDS ORDERED: FUROSEMIDE 40 MG/4 ML VIAL IV SCH (16:00)
[2019-09-08] MEDS ORDERED: FUROSEMIDE 40 MG TABLET PO SCH (09:00)
== END 2019-09-06 16:14 | DRG 291 ==
LOC: EDUNIT# → EDBD → N.ED 05:00 → N.EDINP 08:27 → N.5E 08:50
PROVIDERS: ADMIT Internal Medicine; ATTEND Internal Medicine